=== PATIENT | female | born 1970 | race American Indian/Alaskan Native ===

== ENCOUNTER 2019-09-29 20:52 | Emergency (ER) | payer SELFPAY ==
--- NOTE | 2019-09-29 22:03 | XRay Report ---
RIGHT FOREARM 2 VIEWS 2144 INDICATION: PAIN AND SWELLING, duration since yesterday, no known injury COMPARISON: None available. FINDINGS: No fractures or dislocations are seen. No soft tissue gas or foreign bodies are obvious. No bony destructive lesions are seen. Signer Name: Garfield Mix MD Signed: 09/29/2019 9:59 PM Workstation Name: [id number]
[2019-09-30] MEDS ORDERED: IBUPROFEN 600 MG TAB PO ONE (00:37)
--- NOTE | 2019-09-30 00:39 | Emergency Department Report ---
Upper Extremity - [facility] Chief Complaint: Extremity Injury, Upper Stated Complaint: LEFT WRIST PAIN, SWELLING Time Seen by Provider: 09/30/19 00:34 Upper Extremity: Right Forearm Occurred When: 1 Day Mechanism: Unsure Severity: moderate Symptoms: Yes Pain with Movement, Yes Swelling, Yes Bruising/Ecchymosis, No Deformity, No Numbness, No Weakness Other History: 49-year-old female presents to the emergency room complaining of right wrist and forearm pain and swelling that started yesterday. Patient denies any injuries. Patient states that is very painful. Patient has taken no pain medication. 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 She does report having diabetes and takes at least 5 medications. ED Review of Systems ROS: Stated complaint: LEFT WRIST PAIN, SWELLING Other details as noted in HPI ED Past Medical Hx - Past Medical History Previous Medical History?: Yes Hx Diabetes: Yes - Surgical History Past Surgical History?: No - Social History Smoking Status: Never Smoker Substance Use Type: None - Medications Home Medications: Home Medications Medication Instructions Recorded Confirmed Last Taken Type Ibuprofen [Motrin 600 MG tab] 600 mg PO Q8H PRN #30 tablet 09/30/19 Unknown Rx Upper Extremity Exam - Exam General: Vital signs noted. No distress. Alert and acting appropriately. Head and Torso: No HEENT Abnormality, No Neck Tenderness, No Chest/Lungs Abnormality, No Abdominal Tenderness, No Back Tenderness Shoulder Exam: Yes Normal Range of Motion in Shoulder, No Shoulder Tenderness, No Clavicle Tenderness, No Shoulder Deformity, No AC Joint Tenderness Arm Exam: No Arm/Humerus Tenderness, No Arm Deformity Elbow: No Elbow Tenderness, No Normal Range of Motion in Elbow, No Elbow Deformity Forearm: Yes Forearm Tenderness, No Forearm Deformity, No Pain with Pronation, No Pain with Supination Wrist: Yes Normal ROM in Wrist, No Wrist Tenderness, No Wrist Deformity, No Snuffbox Tenderness, No Pain with Axial Thumb Compression Hand: Yes Normal ROM in Digit(s), No Hand Tenderness, No Hand Deformity, No Digit Tenderness, No Digit(s) Deformity, No Tendon Dysfunction CMS Exam: No Broken Skin, No Normal Distal Pulses, No Normal Capillary Refill, No Normal Distal Sensation ED Course Vital Signs 09/29/19 21:15 Temperature 98.6 F Pulse Rate 75 Respiratory 18 Rate Blood Pressure 132/80 O2 Sat by Pulse 98 Oximetry ED Medical Decision Making - Radiology Data Radiology results: report reviewed Referring Physician:ED DOCPatient Name:AKILAH SAMUELSPatient ID:[id number] of :[id number]:FemaleAccession:[id number] Date:[id number] Status:Finalized Findings [facility] [address] [place] [address] XRay Report Signed Patient: AKILAH SAMUELS MR#: [id number] : 1970 Acct:[id number] Age/Sex: 49 / F ADM Date: 09/29/19 Loc: ED Attending Dr: Ordering Physician: JOSE MACKEY MD Date of Service: 09/29/19 Procedure(s): XR forearm RT Accession Number(s): [id number] cc: JOSE MACKEY MD Fluoro Time In Minutes: RIGHT FOREARM 2 VIEWS 2144 INDICATION: PAIN AND SWELLING, duration since yesterday, no known injury COMPARISON: None available. FINDINGS: No fractures or dislocations are seen. No soft tissue gas or foreign bodies are obvious. No bony destructive lesions are seen. Signer Name: Garfield Mix MD Signed: 09/29/2019 9:59 PM Workstation Name: [id number] Transcribed By: GJ Dictated By: Garfield Mix MD Electronically Authenticated By: Garfield Mix MD Signed Date/Time: 09/29/192158 DD/ 57 TD/TT: - Medical Decision Making 49-year-old female presents to the emergency room complaining of right wrist and forearm pain and swelling that started yesterday. Patient denies any injuries. Patient states that is very painful. Patient has taken no pain medication. 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 She does report having diabetes and takes at least 5 medications. Critical care attestation.: If time is entered above; I have spent that time in minutes in the direct care of this critically ill patient, excluding procedure time. ED Disposition Clinical Impression: Pain, joint, forearm, right, Wrist pain, right Disposition: -01 TO HOME OR SELFCARE Is pt being admited?: No Does the pt Need Aspirin: No Condition: Stable Instructions: Wrist Sprain (ED) Additional Instructions: X-rays are negative for any acute findings no dislocation no fractures no concern for foreign body or infection. Take ibuprofen as needed for pain man agement. Follow-up with an orthopedic provider if his symptoms persist or gets worse Prescriptions: Ibuprofen [Motrin 600 MG tab] 600 mg PO Q8H PRN #30 tablet PRN Reason: Pain , Severe (7-10) [facility] DENISSE [Primary Care Provider] - 3-5 Days KITA REGALADO MD [Staff Physician] - 3-5 Days Forms: Work/School Release Form(ED)
[2019-09-30 00:56] VITALS: BP 133/71
== END 2019-09-30 00:59 | disposition home or self-care (01) ==
LOC: ED 20:52
DX: M25.531 Pain in right wrist (principal); M79.631 Pain in right forearm; E11.9 Type 2 diabetes mellitus without complications; Z79.899 Other long term (current) drug therapy